=== PATIENT | female | born 1980 | race Two or more races ===

== ENCOUNTER 2021-07-09 13:18 | Outpatient (REF) | payer MEDICAID, SELFPAY ==
--- NOTE | ~2021-07-09 | MM_ITS ---
EXAMINATION: MM DIAGNOSTIC DIGITAL BREAST TOMOSYNTHESIS, BILATERAL US DIAGNOSTIC ULTRASOUND BREAST, LEFT CLINICAL INFORMATION: Palpable fullness 8:00 subareolar left breast in area of prior abscess (aspiration at outside facility 05/30/2020). 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 Due for yearly. Patient presents with recent left breast pain and palpable fullness 8:00 subareolar breast in area of prior abscess. Symptoms decreased since recent antibiotics prescribed for urinary tract infection. No erythema. Patient notes intermittent cheesy discharge from left nipple for many years. No known family history breast cancer. The lifetime risk of breast cancer based on the Tyrer-Cuzick Model is 8%. COMPARISON: Outside exams from [facility]: Ultrasound guided aspiration 8:00 left breast 06/12/2020; post biopsy unilateral left mammography for clip placement 05/30/2020. TECHNIQUE: Digital breast tomosynthesis is performed in both the craniocaudal and mediolateral oblique views along with computer-aided detection (CAD). Synthesized 2D images are generated from the tomosynthesis. Ultrasound left breast is targeted to the area of clinical concern subareolar and periareolar 8:00 position using grayscale imaging and color Doppler without and with harmonics. Comparison imaging performed 4:00 right breast. FINDINGS: The breasts are heterogeneously dense, which may obscure small masses (ACR BI-RADS breast composition Category c). Breast tissue composition borders on extremely dense. There is no significant mass or architectural abnormality or abnormal calcifications. Right breast unremarkable. Left breast shows no coarsening of the Max's ligaments or focal duct ectasia. There is mild thickening areolar dermis. There are 2 biopsy clip markers, anterior 3:00 and subareolar 8:00 left breast, corresponding to the outside procedures. Ultrasound left breast demonstrates mild thickening dermis at medial areola. There is circumscribed hypoechogenicity merging with deep dermis at site of clinical concern 8:00 areolar. There is a specular echo at this site corresponding to the biopsy clip marker. The overall size is only 8 x 7 x 5 mm. This is similar to measurements on outside ultrasound of 9 x 6 x 4 mm. There are some color flow, symmetric with that on the right. No definite hyperemia. Results are discussed with the patient at time of visit. Findings at site of palpable concern appear similar to prior imaging 2019. There is no definite hyperemia. Patient notes decrease symptoms since recent clinical evaluation and coarse of antibiotics, prescribed for urinary tract infection. Recommend follow-up clinical assessment. If clinically indicated, repeat targeted ultrasound or surgical consult may be considered. Patient to call for follow up clinical appointment with her provider. Results called to ophthalmic medical assistant (Shaina) for provider Xiomy Correa CNM on 07/09/2021. MM/MM tomosynthesis diagnostic BI IMPRESSION: 1. Left: Subcentimeter hypoechogenicity merging with deep dermis retroareolar 8:00 position, similar to outside ultrasound 2019. 2. Right: No mammographic evidence of malignancy. ASSESSMENT: BI-RADS 2: Benign RECOMMENDATION: 1. Patient should be managed based on the clinical impression. Recommend follow-up clinical assessment. If clinically indicated, repeat targeted ultrasound or surgical consult may be considered. 2. Otherwise, routine annual screening mammography. This patient's information was entered into a reminder system with a target due date for their next mammogram.
== END 2021-07-09 13:19 | disposition home or self-care (01) ==
LOC: HO.MAMMO 13:18
PROVIDERS: PCP Advanced Practice Midwife; Visit Provider Advanced Practice Midwife
DX: N63.42 Unspecified lump in left breast, subareolar (principal)
CPT/HCPCS: 76642; 77062; 77066

== ENCOUNTER → 2022-10-30 10:44 | Outpatient (BNVA) | payer MEDICAID, SELFPAY | PROVIDERS: PCP General Practice; Visit Provider Orthopaedic Surgery | DX: M65.312 Trigger thumb, left thumb (principal); M65.311 Trigger thumb, right thumb; G56.03 Carpal tunnel syndrome, bilateral upper limbs | CPT/HCPCS: 20550; 99202; J1100 ==

== ENCOUNTER 2023-03-10 16:30 | Outpatient (REF) | payer MEDICAID, SELFPAY ==
[2023-03-10 17:33] LABS: MANUAL DIFF FLAG NO
[2023-03-10 17:52] LABS: Estimated Average Glucose 105 mg/dL; Hemoglobin A1c % 5.3 %
[2023-03-10 18:17] LABS: Alanine Aminotransferase 20 U/L (0-31); Albumin Level 4.1 g/dL (3.5-5.0); Alkaline Phosphatase 90 U/L (39-117); Anion Gap 16 (12-20); Aspartate Amino Transferase 17 U/L (5-31); Bilirubin Total 0.2 mg/dL (0.0-1.0); Blood Urea Nitrogen 9 mg/dL (9-16); Calcium 9.3 mg/dL (8.4-10.2); Carbon Dioxide 21 mmol/L (22-29); Chloride 106 mmol/L (96-108); Estimated Glomerular Filt Rate > 60; Glucose Random 106 mg/dL (60-115); Potassium 3.6 mmol/L (3.3-5.1); Sodium 139 mmol/L (135-145); Total Protein 8.1 g/dL (6.5-8.0)
[2023-03-10 18:33] LABS: Thyroid Stimulating Hormone 1.06 uIU/mL (0.32-4.0)
[2023-03-10 18:43] LABS: Folate 7.3 ng/mL (> or = 4.0); Vitamin B12 830 pg/mL (200-900)
[2023-03-10 18:48] LABS: Basophils Percent Auto 0.3 % (0-2); Eosinophils Absolute Auto 0.1 X10*3/uL (0.0-0.4); Hemoglobin 14.9 g/dl (12.0-16.0); Imm Gran Abs Auto 0.03 X10*3/uL (0.00-0.03); Imm Gran Pct Auto 0.3 % (0.0-0.4); Lymphocytes Absolute Auto 1.5 X10*3/uL (1.2-4.9); Lymphocytes Percent Auto 14.7 % (20-40); Mean Corpuscular HGB Conc 34.7 g/dl (31.0-35.0); Mean Corpuscular Hemoglobin 30.9 pg (27.0-33.0); Mean Corpuscular Volume 89.2 fL (80.0-98.0); Mean Platelet Volume 12.7 fL (9.4-12.3); Monocytes Absolute Auto 0.4 X10*3/uL (0.1-1.2); Neutrophils Absolute Auto 8.1 x10*3/uL (2.0-8.3); Neutrophils Percent Auto 79.7 % (45-73); Platelet Count 252 X10*3/uL (160-400); Red Blood Count 4.82 X10*6/uL (4.20-5.50); Red Cell Distribution Width 11.7 % (11.0-16.0); White Blood Count 10.2 X10*3/uL (4.8-10.8)
[2023-03-12 04:18] LABS: Syphilis Screen Nonreactive (Nonreactive)
== END 2023-03-10 16:31 | disposition home or self-care (01) ==
LOC: HO.HHCL 16:30
PROVIDERS: Visit Provider General Practice
DX: G56.03 Carpal tunnel syndrome, bilateral upper limbs (principal)
CPT/HCPCS: 36415; 80053; 82607; 82746; 83036; 84443; 85025; 86780

== ENCOUNTER 2023-09-15 16:22 | Outpatient (REF) | payer MEDICAID, SELFPAY ==
[2023-09-15 17:56] LABS: Alanine Aminotransferase 27 U/L (0-31); Albumin Level 4.3 g/dL (3.5-5.0); Alkaline Phosphatase 97 U/L (39-117); Anion Gap 12 (12-20); Aspartate Amino Transferase 26 U/L (5-31); Bilirubin Total 0.6 mg/dL (0.0-1.0); Blood Urea Nitrogen 9 mg/dL (9-16); C Reactive Protein 1.11 mg/dL (< or = 0.50); Carbon Dioxide 24 mmol/L (22-29); Chloride 105 mmol/L (96-108); Estimated Glomerular Filt Rate > 60; Glucose Random 99 mg/dL (60-115); Potassium 3.3 mmol/L (3.3-5.1); Sodium 138 mmol/L (135-145); Total Protein 8.5 g/dL (6.5-8.0)
[2023-09-15 18:00] LABS: Rheumatoid Factor < 13.0 IU/mL (<15.0)
[2023-09-15 18:13] LABS: Erythrocyte Sedimentation Rate 18 MM/HR (0-20)
[2023-09-21 10:04] LABS: Anti Nuclear Antibody Screen NEGATIVE (NEGATIVE)
== END 2023-09-15 16:23 | disposition home or self-care (01) ==
LOC: HO.HHCL 16:22
PROVIDERS: Visit Provider General Practice
DX: M25.512 Pain in left shoulder (principal); G89.29 Other chronic pain
CPT/HCPCS: 36415; 80053; 85652; 86038; 86140; 86431

== ENCOUNTER 2023-09-18 10:42 | Outpatient (REF) | payer MEDICAID, SELFPAY ==
--- NOTE | ~2023-09-18 | XR_ITS ---
EXAMINATION: XR SHOULDER, LEFT CLINICAL INFORMATION: Chronic left shoulder pain. COMPARISON: None available. TECHNIQUE: AP external rotation, Grashey, scapular Y, and axillary views of the left shoulder. FINDINGS: Bony alignment and mineralization are normal. The glenohumeral joint is intact. 7 mm and 1 mm accessory ossification centers versus loose bodies are seen adjacent to the superior and inferior articular margins of the glenoid respectively. The acromioclavicular and coracoclavicular intervals are normal. There is mild osteoarthritic change of the acromioclavicular joint. No acute fracture or dislocation is seen. There is no abnormal soft tissue calcifications. No left pneumothorax is seen. XR/XR shoulder LT min 2V IMPRESSION: 1. There is mild osteoarthritic change of the left acromioclavicular joint. 2. 7 mm and 1 mm accessory ossification centers versus loose bodies are seen adjacent to the superior and inferior articular margins of the glenoid respectively. 3. No fracture or dislocation is seen.
--- NOTE | ~2023-09-18 | XR_ITS ---
EXAMINATION: XR BILATERAL HIPS WITH AP PELVIS CLINICAL INFORMATION: Pain. COMPARISON: None available. TECHNIQUE: AP and frog-leg lateral views of each hip were obtained. FINDINGS: Bony alignment and mineralization are normal. The acetabular joint spaces are well-maintained. There is slight irregularity of the acetabular roofs. The femoral heads are smooth. 2 small sclerotic bone islands are seen within the left femoral head. There is no acute fracture or dislocation. The sacroiliac joints are symmetric and well-maintained. The pubic symphysis is intact. There are small pelvic phleboliths. There is no foreign body. XR/XR hips ALPESH min 3V IMPRESSION: There are minimal osteoarthritic changes of the hips. No fracture or dislocation is seen.
--- NOTE | ~2023-09-18 | XR_ITS ---
EXAMINATION: XR CERVICAL SPINE CLINICAL INFORMATION: Neck pain. COMPARISON: None available. TECHNIQUE: Frontal, odontoid, bilateral oblique and lateral views of the cervical spine are submitted. FINDINGS: Vertebral body heights and alignment are normal. There is mild anterior disc space narrowing at C6-C7. The remaining disc spaces are well-maintained. No acute fracture or spondylolisthesis is seen. There is moderate anterior spondylosis at C6-C7. The posterior elements are intact. There is mild right neural foraminal narrowing at C6-C7. There is no prevertebral soft tissue swelling. The dens and C7-T1 interface are normal. XR/XR cervical spine 5V IMPRESSION: At C6-C7, there is mild degenerative disc disease, moderate anterior endplate arthropathy and mild right neural foraminal narrowing.
== END 2023-09-18 10:43 | disposition home or self-care (01) ==
LOC: HO.XRAY 10:42
PROVIDERS: PCP General Practice; Visit Provider General Practice
DX: M25.512 Pain in left shoulder (principal); G89.29 Other chronic pain; M54.2 Cervicalgia; M54.16 Radiculopathy, lumbar region
CPT/HCPCS: 72050; 73030; 73522

== ENCOUNTER 2024-02-13 14:42 | Outpatient (REF) | payer MEDICAID, SELFPAY ==
--- NOTE | ~2024-02-13 | XR_ITS ---
EXAMINATION: XR CHEST 2 VIEW CLINICAL INFORMATION: Rib pain, anterior left chest pain for years COMPARISON: None TECHNIQUE: PA and lateral views of the chest obtained. FINDINGS: Linear scar is evident in both mid lung zones including the lingula and right middle lobe. Otherwise, the lungs are clear. There are no pleural effusions. The cardiomediastinal silhouette is normal. XR/XR chest 2V IMPRESSION: No acute disease.
--- NOTE | ~2024-02-13 | XR_ITS ---
EXAMINATION: XR KNEE, LEFT CLINICAL INFORMATION: Left knee locking 4 5-6 months COMPARISON: None available. TECHNIQUE: Four views of the left knee. FINDINGS: No fracture or joint effusion. Alignment is anatomic. Joint spaces are maintained. No abnormal soft tissue calcification. XR/XR knee LT 4V IMPRESSION: Unremarkable plain radiographs of the left knee.
== END 2024-02-13 14:43 | disposition home or self-care (01) ==
LOC: HO.HHCX 14:42
PROVIDERS: Visit Provider General Practice
DX: M25.562 Pain in left knee (principal); R07.81 Pleurodynia; M25.512 Pain in left shoulder; G89.29 Other chronic pain
CPT/HCPCS: 71046; 73564

== ENCOUNTER 2025-03-21 15:56 | Outpatient (REF) | payer MEDICAID, SELFPAY ==
--- OUTSIDE RECORDS SUMMARY | 2025-03-21 15:59 | XMS_ITS | Clinical Summary ---
Author Organization [facility] ity Address [address] [place] [address] Care Team Providers Care Justice Court Judge Name Role Phone Fausto Ferrera MD Primary Care Provider [phone] Social History Tobacco Use Types Packs/Day Years Used Date Smoking Tobacco: Never Assessed Comments Unknown Sex and Gender Information Value Date Recorded Sex Assigned at Not on file Legal Sex Female 8:27 AM EST Gender Identity Not on file Sexual Orientation Not on file Plan of Treatment Health Maintenance Due Date Last Done Comments Breast Cancer Screening 1980 DTaP,Tdap,and Td Vaccines (1 - Tdap) 12/18/1999 Hepatitis B Vaccines (1 of 3 - 19+ 3-dose series) 12/18/1999 Cervical Cancer Screening: P ap Smear 2001 COVID-19 Vaccine ( - 2023-2 5 season) 2024 Depression Screening 08/11/2024 Influenza Vaccine (#1) 2025 HIB Vaccines Aged Out No longer eligi ble based on patient's age to complete this topic HPV Vaccines Aged Out No longer eligi ble based on patient's age to complete this topic Hepatitis A Vaccines Aged Out No long er eligible based on patient's age to complete this topic IPV Vaccines Aged Out No longer eligi ble based on patient's age to complete this topic MMR Vaccines Aged Out No longer eligi ble based on patient's age to complete this topic Meningococcal ACWY Vaccine Aged Out N o longer eligible based on patient's age to complete this topic Meningococcal B Vaccine Aged Out No l onger eligible based on patient's age to complete this topic Pneumococcal Vaccine: Pediat rics (0 to 5 Years) and At-Risk Patients (6 to 49 Years) Aged Out No longer eligible b ased on patient's age to complete this topic RSV Immunization Patients Un chris 20 months Aged Out No longer eligible b ased on patient's age to complete this topic Varicella Vaccines Aged Out No longer eligible based on patient's age to complete this topic Care Teams Justice Court Judge Relationship Specialty Start Date End Date Fausto Ferrera MD [address] [place] [address] PCP - General Internal Medicine 10/07/18
--- OUTSIDE RECORDS SUMMARY | 2025-03-21 15:59 | XMS_ITS | Encounter Summary ---
Author Organization [employer] Address [address] [place] [address] [address] [place] [address] Care Team Providers Care Mill Hand Name Role Phone Karishma Cooley MD Primary Care Provider [phone] Reason for Visit * Reason Onset Date Comments PT1 10/12/2024 Encounter Details Date Type Department Care Team ([facility] st Contact Info) Description 10/12/2024 Telephone [facility] [address] [place], [place] [phone] Karishma Cooley MD [address] [place], [place] [phone] PT1 Social History Tobacco Use Types Packs/Day Years Used Date Smoking Tobacco: Every Day Cigarettes Smokeless Tobacco: Never Alcohol Use Standard Drinks/Week Comments Never 0 (1 standard drink = 0.6 oz pur e alcohol) Depression Answer Date Recorded Patient Health Questionnaire-9 Score 23 01/23/2024 Patient Health Questionnaire-9 Score 23 01/23/2024 Last PHQ-9: Questionnaire Data Not on file 0 01/23/2024 Housing Stability Answer Date Recorded What is your housing situation today? I have housing today, but I am worried about losing housing in the future 01/23/[address] you li ve. Do you have problems with any of the following? Pests such as bugs, ants, or mice;Mold;Lead [place] or Pipes;Inadequate heat;Oven or stove not working;Water leaks 01/23/2024 Food Insecurity Answer Date Recorded Within the past 12 months, y ou worried that your food would run out before you got money to buy more: Often true 01/23/2024 Within the past 12 months,th e food you bought just didn't last and you didn't have enough money to get more: Often true Transportation Answer Date Recorded In the past 12 months, has l ack of transportation kept you from medical appts, meetings, work or from getting things needed for daily living? Yes, it has kept me from medical appointments or getting medications. 01/23/2024 Utilities Answer Date Recorded In the past 12 months, has t he electric, gas, oil or water company threatened to shut off services in your home? No 01/23/2024 Depression Answer Date Recorded Patient Health Questionnaire-2 Score 6 01/23/2024 Comments No Sex and Gender Information Value Date Recorded Sex Assigned at Female 06/10/2022 10:38 AM EDT Legal Sex Female 10:38 AM EDT Gender Identity Female 06/10/2022 10:38 AM EDT Sexual Orientation Straight 08/29/2022 2: 18 PM EST documented as of this encounter Miscellaneous Notes * Telephone Encounter - Shayy Robles - 10/12/2024 3:11 PM EST 1 of 2 Patient calling requesting PT1 Home Address verified: Y/N: Yes Provider name or facility name: [address] [place] [address] Escort needed: Y/N: No Do you have a wheelchair: Y/N: No If yes- Manual or electric: N/A Visits: (2x monthly) 2 of 2 Patient calling requesting PT1 Home Address verified: Y/N: Yes Provider name or facility name: [address] [place] [address] [place] [address] Escort needed: Y/N: No Do you have a wheelchair: Y/N: No If yes- Manual or electric: N/A Visits: (1x monthly) documented in this encounter Plan of Treatment Not on file documented as of this encounter Visit Diagnoses Not on filedocumented in this encounter Additional Health Concerns Assessment Noted Time PHQ-9 Depression Total Score: 23 024 2:29 PM EDT documented as of this encounter Care Teams Mill Hand Relationship Specialty Start Date End Date Karishma Cooley MD [address] [place] [address] PCP - General Family Medicine 10/17/21 documented as of this encounter
[2025-03-21 17:53] LABS: Hemoglobin A1C 164.9548 umol/L; Total Hemoglobin (HGBA1C) 3964.4346 umol/L
[2025-03-21 18:56] LABS: Folate 6.4 ng/mL (> or = 4.0); Vitamin B12 909 pg/mL (200-900)
== END 2025-03-21 15:57 | disposition home or self-care (01) ==
LOC: HO.HHCL 15:56
PROVIDERS: PCP General Practice; Visit Provider General Practice
DX: E66.811 Obesity, class 1 (principal); Z68.34 Body mass index [BMI] 34.0-34.9, adult
CPT/HCPCS: 36415; 82607; 82746; 83036; 84443